=== PATIENT | male | born 1935 | race Caucasian/White ===

== ENCOUNTER → 2017-04-27 | Outpatient (CLI) | payer OTHER, MEDICARE ==
[~2017-04-27] MED LIST: ALLOPURINOL100 MG PO; ASPIR-LOW81 MG PO; ATORVASTATIN CA40 MG PO; CELECOXIB200 MG PO; DOCUSATE SODIU100 MG PO; HYDROCODON-ACE1 EAC7 PO; HYDROCODONE CO PO; METOPROLOL TART50 MG PO; OMEPRAZOLE20 M2 PO; OXYCODONE HCL10 MG PO; WARFARIN SODIUM2 MG PO; WARFARIN SODIUM3 MG PO
[2017-04-27 13:30] LABS: INTER. NORMALIZED RATIO 1.2; PROTHROMBIN TIME 12.5 (9.2-11.2); PTT 30.6 (25-32)
[2017-04-29 12:43] LABS: Flow Number of Markers 22 (()); Flow Spec Viability 67 % (()); Flow Specimen Type NOT PROVIDED (())
== END | disposition home or self-care (01) ==
LOC: OPR 12:38 → RAD 13:00
PROVIDERS: Internal Medicine Hematology & Oncology; Radiology Diagnostic Radiology
PROC: 07B63ZX Excision of Left Axillary Lymphatic, Percutaneous Approach, Diagnostic (ICD-10-PCS; principal; 2017-04-27)
DX: C77.3 Secondary and unspecified malignant neoplasm of axilla and upper limb lymph nodes (principal); C76.0 Malignant neoplasm of head, face and neck; Z92.21 Personal history of antineoplastic chemotherapy; Z92.3 Personal history of irradiation; K11.7 Disturbances of salivary secretion
CPT/HCPCS: 76942; 85610; 85730; 88184 90; 88185 90; 88189 90; 88305; 88341 TC; 88342 TC; J3010

== ENCOUNTER 2017-05-17 13:36 | Emergency (ER) | payer OTHER, MEDICARE ==
[~2017-05-17] VITALS: Ht 165.1 cm; Wt 87.9 kg
[2017-05-17 14:49] LABS: HEMATOCRIT 35.2 % (38.0-50.0); MCH 30.4 PG (29.0-34.0); MCHC 32.4 G/DL (30.0-36.0); MCV 93.9 FL (86-99); MEAN PLAT.VOLUME 10.9 uM^3 (9.0-12.4); PLATELET COUNT 175 K/uL (156-360); RBC DIS.WIDTH-CV 14.4 % (11.8-14.6); RBC DIS.WIDTH-SD 49.9 % (39-53); RED BLOOD COUNT 3.75 M/uL (4.00-5.50); WHITE BLOOD COUNT 6.1 K/uL (4.1-10.2)
[2017-05-17 15:11] LABS: INTER. NORMALIZED RATIO 2.5; PROTHROMBIN TIME 26.2 (9.2-11.2); PTT 38.2 (25-32)
[2017-05-17 15:27] LABS: CHLORIDE 106 mEq/L (99-109); POTASSIUM 4.3 mEq/L (3.7-5.4); SODIUM 138 mEq/L (136-147)
[2017-05-17 15:28] LABS: GLUCOSE 107 mg/dL (70-99)
[2017-05-17 15:30] LABS: ANION GAP 8 MEQ/L (2-14)
[2017-05-17 15:32] LABS: GFR ESTIMATE (CALCULATED) 56 mL/min/
[2017-05-17 15:33] LABS: UREA NITROGEN (BUN) 29 mg/dL (9-23)
[2017-05-17] MEDS ORDERED: WARFARIN SODIUM5 MG PO (18:29)
[2017-05-17] MEDS ORDERED: DOXYCYCLINE HY100 MG PO (18:30)
[2017-05-17] MEDS ORDERED: OMEPRAZOLE20 MG PO (18:30)
[2017-05-17] MEDS ORDERED: FUROSEMIDE40 MG PO (18:30)
[2017-05-17] MEDS ORDERED: CHEMO (18:34)
[2017-05-17 21:13] VITALS: BP 127/52
== END 2017-05-17 21:14 | disposition home or self-care (01) ==
LOC: EME 13:36
PROVIDERS: Emergency Medicine
DX: K92.2 Gastrointestinal hemorrhage, unspecified (principal); D64.9 Anemia, unspecified; I10 Essential (primary) hypertension; K21.9 Gastro-esophageal reflux disease without esophagitis; Z95.1 Presence of aortocoronary bypass graft; Z87.891 Personal history of nicotine dependence
CPT/HCPCS: 74177; 80048; 85027; 85610; 85730; 86900; 86901; 99281; 99285

== ENCOUNTER → 2018-03-09 | Outpatient (CLI) | payer OTHER, MEDICARE ==
[~2018-03-09] MED LIST changes: +ASPIRIN81 M2 PO; +CHEMO; +COUMADIN4 MG PO; +DOXYCYCLINE HY100 MG PO; +FUROSEMIDE40 MG PO; +OMEPRAZOLE20 MG PO; +WARFARIN SODIUM5 MG PO
== END | disposition home or self-care (01) ==
DX: R13.14 Dysphagia, pharyngoesophageal phase (principal); Z87.19 Personal history of other diseases of the digestive system; Z85.810 Personal history of malignant neoplasm of tongue; Z92.21 Personal history of antineoplastic chemotherapy; Z92.3 Personal history of irradiation
CPT/HCPCS: 92611 GN; G8996 GN; G8997 GN; G8998 GN